=== PATIENT | female | born 1960 | race Caucasian/White ===

== ENCOUNTER 2025-04-04 15:16 | Inpatient (IN) | payer OTHER ==
[2025-04-04] VITALS (10 sets, daily range): BP systolic 116–128; BP diastolic 78–86
[~2025-04-04] VITALS: Ht 165.1 cm; Wt 75.0 kg
[2025-04-04 16:14] LABS: BASOPHILS ABSOLUTE AUTO 0.03 K/mm3 (0.00-0.23); BASOPHILS PERCENT AUTO 0 % (0-2); EOSINOPHILS ABSOLUTE AUTO 0.01 K/mm3 (0.00-0.68); EOSINOPHILS PERCENT AUTO 0 % (0-6); Hematocrit 46.7 % (33.0-51.0); Hemoglobin 15.6 g/dL (11.5-16.0); IMMATURE GRAN ABSOLUTE AUTO 0.23 K/mm3 (0.00-0.10); IMMATURE GRAN PERCENT AUTO 1 % (0-1); LYMPHOCYTES ABSOLUTE AUTO 1.20 K/mm3 (0.84-5.20); LYMPHOCYTES PERCENT AUTO 6 % (21-46); MONOCYTES ABSOLUTE AUTO 0.87 K/mm3 (0.16-1.47); MONOCYTES PERCENT AUTO 4 % (4-13); Mean Corpuscular HGB Conc 33.4 g/dL (31.5-36.5); Mean Corpuscular Volume 93 fL (80-100); NEUTROPHILS ABSOLUTE AUTO 18.95 K/mm3 (1.96-9.15); NEUTROPHILS PERCENT AUTO 89 % (41-73); NRBC ABSOLUTE 0.00 K/mm3 (0.00-0.02); NRBC Auto 0.0 /100 WBC (0.0-0.2); RDW Coefficient Variation 13.7 % (11.7-14.2); RDW Standard Deviation 46.6 fL (35.1-46.3)
[2025-04-04 16:42] LABS: Alanine Aminotransfer (ALT/SGP 15.0 U/L (12-78); Albumin, Blood 3.7 g/dL (3.4-5.0); Albumin/Globulin Ratio 0.9 (0.8-1.8); Anion Gap 6.0 mmol/L (3-11); Aspartate Aminotrans (AST/SGOT 19.0 U/L (12-37); Bilirubin, Total 0.6 mg/dL (0.1-1.0); Blood Urea Nitrogen 17.0 mg/dL (8-24); CO2, Blood 22.0 mmol/L (21-32); Calcium, Blood 9.1 mg/dL (8.5-10.1); Chloride, Blood 109.0 mmol/L (98-108); Creatinine, Blood 0.55 mg/dL (0.40-1.00); Globulin, Blood 3.9 g/dL (2.2-4.0); Glucose, Blood 147.0 mg/dL (70-99); Potassium, Blood 3.4 mmol/L (3.5-5.5); Sodium, Blood 134.0 mmol/L (136-145); Total Protein, Blood 7.6 g/dL (6.4-8.2)
[2025-04-04] MEDS ORDERED: FentaNYL Citrate 50 MCG/ML 2 ML Injection IV ONE (16:45)
[2025-04-04] MEDS ORDERED: Prochlorperazine Edisylate 10 mg Vial IV ONE (16:45)
[2025-04-04] MEDS ORDERED: NS 1,000 ML IV SCH ×2 (16:50→19:20)
[2025-04-04] MEDS ORDERED: DiphenhydrAMINE HCl 50 MG/ML 1ML Vial IV ONE (16:50)
[2025-04-04] MEDS ORDERED: Pantoprazole Sodium 40 MG Injection IV ONE (16:50)
[2025-04-04 16:55] LABS: Platelet Count 247 K/mm3 (150-400)
[2025-04-04] MEDS ORDERED: Doxycycline Hyclate 100 MG in Dextrose 5% 250 ML IV ONE (19:20)
[2025-04-04] MEDS ORDERED: CefTRIAXone Sodium 1,000 MG in NS 50 ML IV ONE (19:20)
[2025-04-04] MEDS ORDERED: FentaNYL Citrate 50 MCG/ML 2 ML Injection ONE ×2 (19:32→19:57)
[2025-04-04] MEDS ORDERED: Verapamil HCL 2.5 MG/ML 2ML Injection ONE (19:57)
[2025-04-04] MEDS ORDERED: NS 250 ML IV ONE (19:57)
[2025-04-04] MEDS ORDERED: NS 2,000 ML IV ONE (19:57)
[2025-04-04] MEDS ORDERED: Midazolam HCl 1MG / ML 2ML Vial ONE (19:57)
[2025-04-04] MEDS ORDERED: Heparin Sodium 1000 Units/ML 10ML MDV ONE (19:57)
[2025-04-04] MEDS ORDERED: Nitroglycerin 2 MG/20 ML BTL ONE (19:58)
[2025-04-04] MEDS ORDERED: Tirofiban HCL M-Hyd/NS 250 ML IV ONE (20:26)
[2025-04-04] MEDS ORDERED: Heparin Sodium,Porcine 5,000 UNIT/0.5 ML SDV SC ONE (20:35)
[2025-04-04] MEDS ORDERED: Amiodarone HCl 50 MG / ML 3 ML Amp IV ONE (20:35)
[2025-04-04 20:57] LABS: CHOL/HDL RATIO 3.3; Cholesterol 197 mg/dL (50-200); HDL Cholesterol 59 mg/dL (>39); LDL/HDL RATIO 2.0; Low Density Lipoprotein Chol 117 mg/dL (0-110); Magnesium, Blood 1.9 mg/dL (1.6-2.4); Thyroid Stimulating Hormone 4.440 uIU/mL (0.360-4.800); Triglycerides 106 mg/dL (30-160); Very Low Density Lipoprot Chol 21 mg/dL (6-32)
[2025-04-05] VITALS (59 sets, daily range): BP systolic 102–149; BP diastolic 69–104
[2025-04-05 05:23] LABS: BASOPHILS ABSOLUTE AUTO 0.02 K/mm3 (0.00-0.23); BASOPHILS PERCENT AUTO 0 % (0-2); EOSINOPHILS ABSOLUTE AUTO 0.00 K/mm3 (0.00-0.68); EOSINOPHILS PERCENT AUTO 0 % (0-6); Hematocrit 42.1 % (33.0-51.0); Hemoglobin 13.9 g/dL (11.5-16.0); IMMATURE GRAN ABSOLUTE AUTO 0.07 K/mm3 (0.00-0.10); IMMATURE GRAN PERCENT AUTO 1 % (0-1); LYMPHOCYTES ABSOLUTE AUTO 1.56 K/mm3 (0.84-5.20); LYMPHOCYTES PERCENT AUTO 11 % (21-46); MONOCYTES ABSOLUTE AUTO 0.87 K/mm3 (0.16-1.47); MONOCYTES PERCENT AUTO 6 % (4-13); Mean Corpuscular HGB Conc 33.0 g/dL (31.5-36.5); Mean Corpuscular Volume 93 fL (80-100); NEUTROPHILS ABSOLUTE AUTO 11.20 K/mm3 (1.96-9.15); NEUTROPHILS PERCENT AUTO 82 % (41-73); NRBC ABSOLUTE 0.00 K/mm3 (0.00-0.02); NRBC Auto 0.0 /100 WBC (0.0-0.2); Platelet Count 243 K/mm3 (150-400); RDW Coefficient Variation 14.1 % (11.7-14.2); RDW Standard Deviation 48.7 fL (35.1-46.3)
--- NOTE | 2025-04-05 05:27 | NUR ---
SHIFT SUMMARY PT HAS TOLERATED NIGHT WELL AFTER ADMIT TO ICU WITH NO SIGNIFICANT EVENTS OR CHANGES IN STATUS. PT CAME TO UNIT FROM [facility]. TR BAND ON R RADIAL WAS DEFLATED STARTING AT 0100 AND DCed AT 0510. PT WAS ABLE TO STAND AND TRANSFER TO TOILET WITH ONE PERSON SBA. PT CURRENTLY RESTING COMFORTABLY IN ROOM, CALL LIGHT WITHIN REACH. WILL CONTINUE TO MONITOR UNTIL REPORT PASSED TO DAY SHIFT TEAM.
[2025-04-05 05:51] LABS: Alanine Aminotransfer (ALT/SGP 86.0 U/L (12-78); Albumin, Blood 3.1 g/dL (3.4-5.0); Albumin/Globulin Ratio 1.0 (0.8-1.8); Anion Gap 9.0 mmol/L (3-11); Aspartate Aminotrans (AST/SGOT 714.0 U/L (12-37); Bilirubin, Total 0.6 mg/dL (0.1-1.0); Blood Urea Nitrogen 16.0 mg/dL (8-24); CO2, Blood 26.0 mmol/L (21-32); Calcium, Blood 8.4 mg/dL (8.5-10.1); Chloride, Blood 109.0 mmol/L (98-108); Creatinine, Blood 0.52 mg/dL (0.40-1.00); Globulin, Blood 3.2 g/dL (2.2-4.0); Glucose, Blood 121.0 mg/dL (70-99); Magnesium, Blood 2.0 mg/dL (1.6-2.4); Potassium, Blood 3.8 mmol/L (3.5-5.5); Sodium, Blood 140.0 mmol/L (136-145); Total Protein, Blood 6.3 g/dL (6.4-8.2)
[2025-04-05] MEDS ORDERED: ALORA1 EACH TOP (08:19)
[2025-04-05] MEDS ORDERED: LEVSOD100 PO (08:20)
[2025-04-05] MEDS ORDERED: Enoxaparin 40 MG/0.4 ML SYR SC SCH (09:00)
--- NOTE | 2025-04-05 11:15 | NUR ---
AM NOTES PT AWAKE AND ALERT X4 FOR BEDSIDE REPORT. PT DENIES ANY CHEST PAIN/PRESSURE/NUMBNESS/TINGLING. MOVES ALL EXTREMITIES SPONTANESOULY AND IS ABLETO MAKE NEEDS KNOWN. NSR ON MONITOR, CAP REFILL<3 SEC, AND NO NOTED EDEMA. PT SATURATING >95% ON RA, LUNG SOUNDS CLEAR T/O GONZALEZ/DIM AT BASES. ABD SOFT/NONTENDER AND BOWEL SOUNDS ACTIVE. WNL. SKIN INTACT AND W/O BREAKDOWN. EKG PERFORMED AND REVIEWED BY CARDIOLOGY. ECHO PERFORMED AT BEDSIDE. ACCESS: LW PIV, SILVESTRE PIV
[2025-04-05] MEDS ORDERED: CYCL10 PO (11:37)
[2025-04-05] MEDS ORDERED: Norco 5-325 Ta1 EACH PO (11:38)
[2025-04-05] MEDS ORDERED: HYDROcodone 5-APAP 325 TAB PO PRN (11:50)
[2025-04-05] MEDS ORDERED: Polyethylene Glycol 3350 17 gm PO PRN (11:50)
--- NOTE | 2025-04-05 17:16 | NUR ---
PM NOTE ASSESSMENT UNCHANGED FROM AM NOTE. PT HAS BEEN INTERMITTENTLY SLEEPING/RESTING THIS PM, ABLE TO MAKE NEEDS KNOWN AND CALL LIGHT WITHIN REACH. ACCESS: LW PIV. SILVESTRE PIV
[2025-04-05] MEDS ORDERED: Docusate Sodium/Senna 1 Tab PO SCH (21:00)
[2025-04-06] VITALS (7 sets, daily range): BP systolic 100–127; BP diastolic 71–108
--- NOTE | 2025-04-06 05:39 | NUR ---
SHIFT SUMMARY PT HAS TOLERATED NIGHT WELL WITH NO SIGNIFICANT EVENTS OR CHANGES. PT IS ABLE TO MOVE AROUND ROOM INDEPENDENTLY AND HAS VERY LITTLE PAIN OVERNIGHT. PT STATES THAT SHE HAS NOT HAD BOWEL MOVEMENT SINCE SURGERY 3 DAYS AGO AND ASKS THIS NURSE FOR MEDICATIONS TO HELP ASSIST HER IN HAVING A BOWEL MOVEMENT. MEDS HAVE BEEN GIVEN PER PHYSICIANS ORDER IN OCT. PT CURRENTLY RESTING COMFORTABLY, AMBULATING OCCASIONALLY TO TRY AND STIMULATE HER BOWELS. CALL LIGHT WITHIN REACH. WILL CONTINUE TO MONITUR UNTIL REPORT PASSED TO DAY SHIFT TEAM.
[2025-04-06 05:49] LABS: Alanine Aminotransfer (ALT/SGP 113.0 U/L (12-78); Albumin, Blood 2.8 g/dL (3.4-5.0); Albumin/Globulin Ratio 0.9 (0.8-1.8); Anion Gap 8.0 mmol/L (3-11); Aspartate Aminotrans (AST/SGOT 295.0 U/L (12-37); Bilirubin, Total 0.6 mg/dL (0.1-1.0); Blood Urea Nitrogen 21.0 mg/dL (8-24); CO2, Blood 24.0 mmol/L (21-32); Calcium, Blood 8.1 mg/dL (8.5-10.1); Chloride, Blood 109.0 mmol/L (98-108); Creatinine, Blood 0.63 mg/dL (0.40-1.00); Globulin, Blood 3.0 g/dL (2.2-4.0); Glucose, Blood 111.0 mg/dL (70-99); Potassium, Blood 4.4 mmol/L (3.5-5.5); Sodium, Blood 137.0 mmol/L (136-145); Total Protein, Blood 5.8 g/dL (6.4-8.2)
[2025-04-06] MEDS ORDERED: Polyethylene Glycol 3350 17 gm PO ONE (06:00)
--- NOTE | 2025-04-06 08:04 | NUR ---
SHIFT ASSESSMENT ASSUMED CARE OF PT @ 0700, BEDSIDE REPORT RECEIVED FROM DWAYNE DENG. PT A&OX4, PLEASANT AND COOPERATIVE WITH CARE. DENIES CP/ SOB, ON RA. C/O MILD DISCOMFORT IN L LEG, PT STATES THIS IS A CHRONIC ISSUE. PT ALSO C/O CONSTIPATION, STATES NO BM SINCE MONDAY THE . SENNA GIVEN LAST NIGHT AND MIRALAX THIS AM. URINATING WITHOUT DIFFICULTY, AMBULATES TO BEDSIDE COMMODE.
[2025-04-06] MEDS ORDERED: OZEMPIC0.25 MG/02 SC (09:27)
[2025-04-06] MEDS ORDERED: AMLO5 PO (09:28)
[2025-04-06] MEDS ORDERED: ASPI81CH PO (11:32)
[2025-04-06] MEDS ORDERED: CLOP75 PO (11:32)
[2025-04-06] MEDS ORDERED: DOXY100 PO (11:34)
[2025-04-06] MEDS ORDERED: JARDIANCE10 MG PO (11:34)
[2025-04-06] MEDS ORDERED: EZET10 PO (11:35)
[2025-04-06] MEDS ORDERED: METO25ER PO (11:35)
[2025-04-06] MEDS ORDERED: MIRALAX17 GM PO (11:36)
--- NOTE | 2025-04-06 12:10 | NUR ---
DISCHARGE PT DISCHARGED TO HOME WITH A FRIEND. PT AMBULATED TO CAR WITHOUT ASSISTANCE. MEDICATIONS FAXED TO [facility]
== END 2025-04-06 12:00 | disposition home or self-care (01) | DRG 321 ==
LOC: ER 15:16 → ICUE 19:39
PROVIDERS: Internal Medicine; Student in an Organized Health Care Education/Training Program; ADMIT Student in an Organized Health Care Education/Training Program
PROC: 027035Z Dilation of Coronary Artery, One Artery with Two Drug-eluting Intraluminal Devices, Percutaneous Approach (ICD-10-PCS; principal; 2025-04-04)
PROC: 4A023N7 Measurement of Cardiac Sampling and Pressure, Left Heart, Percutaneous Approach (ICD-10-PCS; 2025-04-04)
PROC: B2111ZZ Fluoroscopy of Multiple Coronary Arteries using Low Osmolar Contrast (ICD-10-PCS; 2025-04-04)
PROC: B241ZZ3 Ultrasonography of Multiple Coronary Arteries, Intravascular (ICD-10-PCS; 2025-04-04)
PROC: 3E03329 Introduction of Other Anti-infective into Peripheral Vein, Percutaneous Approach (ICD-10-PCS; 2025-04-04)
DX: I21.19 ST elevation (STEMI) myocardial infarction involving other coronary artery of inferior wall (principal); I50.21 Acute systolic (congestive) heart failure; J18.9 Pneumonia, unspecified organism; I47.20 Ventricular tachycardia, unspecified; E78.5 Hyperlipidemia, unspecified; E03.9 Hypothyroidism, unspecified; R73.9 Hyperglycemia, unspecified; I11.0 Hypertensive heart disease with heart failure; E87.6 Hypokalemia; Z87.891 Personal history of nicotine dependence; Z98.890 Other specified postprocedural states
CPT/HCPCS: 36415; 71046; 71275; 76937; 80053; 80061; 83036; 83605; 83690; 83735; 84443; 84484; 85025; 85347; 92978; 93005; 93010; 93306; 93454; 96374-59; 96375-59; 99152; 99153; 99285-25; A9270; C1725; C1753; C1769; C1874; C1887; C1894; C9606; J0282; J0696; J0780; J1200; J1644; J1650; J2250; J2470; J3010; J3246; J7030; J7050; J7060; Q9967